=== PATIENT | female | born 1995 | race Caucasian/White ===

== ENCOUNTER 2017-01-02 00:16 | Emergency (ER) | payer OTHER ==
[2017-01-02] MEDS ORDERED: DEXAMETHASONE 10 MG/ML VIAL PO STA (01:11)
[2017-01-02] MEDS ORDERED: ACETAMINOPHEN 325 MG TABLET PO STA (01:11)
[2017-01-02] MEDS ORDERED: CEPHALEXIN 250 MG CAPSULE PO STA (01:11)
[2017-01-02] MEDS ORDERED: ACETAMINOPHEN 325 MG TABLET PO ONE (01:15)
[2017-01-02] MEDS ORDERED: DEXAMETHASONE 10 MG/ML VIAL ONE (01:15)
[2017-01-02] MEDS ORDERED: CEPHALEXIN 250 MG CAPSULE PO ONE (01:15)
[2017-01-02] MEDS ORDERED: CHERRY SYRUP 10 ML UDC PO ONE (01:15)
[2017-01-02] MEDS ORDERED: diphenhydrAMINE 25 MG CAPSULE PO STA (01:26)
[2017-01-02] MEDS ORDERED: diphenhydrAMINE 25 MG CAPSULE PO ONE (01:34)
== END 2017-01-02 01:41 | disposition home or self-care (01) ==
DX: J03.90 Acute tonsillitis, unspecified (principal)
CPT/HCPCS: 87070; 87430; 99283; A9270

== ENCOUNTER 2018-02-03 01:58 | Emergency (ER) | payer OTHER ==
--- NOTE | 2018-02-03 02:31 | ED Physician Documentation ---
PD HPI OVERDOSE - Stated complaint Stated Complaint: MEDICATION OVERDOSE - Chief complaint Chief Complaint: General - History obtained from History obtained from: Patient, Family - History of Present Illness Timing - onset: Today Subtance(s) ingested: Tylenol Contributing factors: Accidental Similar symptoms before: Has not had sx before Recently seen: Not recently seen - Additional information Additional information: Patient is a 22 year old female with no significant past medical history who is presenting to the emergency department for accidental tylenol overdose. patient states that she has not been feeling well for the last week with uri symptoms. Patient states that she has been taking tylenol, pseudophed and a cold and flu medication. Patient states that tonight she took five tylenol, which she thought were 50s, but were 500mg. Patient also took liquid cold medication that had tylenol in it. Patient states that she does not know the amount that she took but it is 650 mg per serving. Patient states that it was definitely accidental and is complaining of mild abdominal pain. 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 - Present Medications Home Medications: Ambulatory Orders Medication Instructions Recorded Confirmed Cephalexin [Keflex] 500 mg PO TID #15 capsule 01/02/17 Dexamethasone [Decadron] 4 mg PO DAILY #5 tablet 01/02/17 Ibuprofen [Motrin] 600 mg PO TID #20 tab 01/02/17 - Allergies Allergies/Adverse Reactions: Allergies Allergy/AdvReac Type Severity Reaction Status Date / Time No Known Drug Allergies Allergy Verified 02/03/18 02:13 - Social History Does the pt smoke?: No Smoking Status: Never smoker Does the pt drink ETOH?: No Does the pt have substance abuse?: No - Immunizations Immunizations are current?: Yes - POLST Patient has POLST: No Results - Vitals Vitals: Vital Signs - 24 hr 02/03/18 02/03/18 02:07 06:14 Temperature 36.5 C Heart Rate 67 64 Respiratory 18 16 Rate Blood Pressure 135/71 H 128/68 O2 Saturation 99 100 Oxygen O2 Source Room air - Labs Labs: Laboratory Tests 02/03/18 02/03/18 02/03/18 02:20 06:08 06:08 WBC 5.9 RBC 4.38 Hgb 12.6 Hct 38.9 MCV 88.8 MCH 28.7 MCHC 32.3 RDW 14.6 Plt Count 218 MPV 8.6 Neut # 3.1 Lymph # 2.1 [place] # 0.5 Eos # 0.2 Baso # 0.0 Absolute Nucleated RBC 0.00 Nucleated RBC % 0.1 Sodium 137 Potassium 4.0 Chloride 107 Carbon Dioxide 24 Anion Gap 6.0 BUN 11 Creatinine 0.7 Estimated GFR (MDRD) 106 Glucose 117 H Calcium 8.7 Total Bilirubin 0.4 AST 16 ALT 15 Alkaline Phosphatase 55 Total Protein 6.9 Albumin 3.8 Globulin 3.1 Albumin/Globulin Ratio 1.2 Lipase 21 L Acetaminophen 116 H* 38 H PD MEDICAL DECISION MAKING - ED course Complexity details: reviewed old records, reviewed results, re-evaluated patient , considered differential, d/w patient, d/w family ED course: Patient was seen and examined at bedside. labs were drawn. patient was found to have an acetaminophen level of 116. patient was observed for repeat acetaminophen level at 4 hours which was normal. Patient required no further work up and was stable for discharge with outpatient follow up. Departure - Departure Disposition: 01 Home, Self Care Clinical Impression: Abdominal pain Condition: Good Instructions: ED Abdominal Pain Unkn Cause Follow-Up: Raman Godinez ARNP [Primary Care Provider] - Within 3 Days Comments: Your diagnostics today were within normal limits. Your tylenol levels normalized. You should be careful and read all labels before ingesting. You should follow up with your doctor for further evaluation and care. You may return to the emergency department at any time for new, worsening or uncontrollable symptoms. Forms: Activity restrictions
[2018-02-03 06:15] VITALS: BP 128/68
[2018-02-03 06:15] LABS: BASOPHILS % (AUTO) 0.7 %; EOSINOPHILS # (AUTO) 0.2 10^3/uL (0.0-0.7); EOSINOPHILS % (AUTO) 3.7 %; HGB - HEMOGLOBIN 12.6 g/dL (12.0-16.0); LYMPHOCYTES # (AUTO) 2.1 10^3/uL (1.5-3.5); LYMPHOCYTES % (AUTO) 35.1 %; MEAN CORPUSCULAR HEMOGLOBIN 28.7 pg (27.0-31.0); MEAN CORPUSCULAR HGB CONC 32.3 g/dL (32.0-36.0); MEAN CORPUSCULAR VOLUME 88.8 fL (81.0-99.0); MEAN PLATELET VOLUME 8.6 fL (7.9-10.8); MONOCYTES # (AUTO) 0.5 10^3/uL (0.0-1.0); MONOCYTES % (AUTO) 7.9 %; NEUTROPHILS # (AUTO) 3.1 10^3/uL (1.5-6.6); NEUTROPHILS % (AUTO) 52.6 %; PLT - PLATELET COUNT 218 10^3/uL (130-450); RED BLOOD COUNT 4.38 10^6/uL (4.20-5.40); RED CELL DISTRIBUTION WIDTH 14.6 % (12.0-15.0); WHITE BLOOD COUNT 5.9 x10^3/uL (4.8-10.8)
[2018-02-03 06:28] LABS: ALBUMIN 3.8 g/dL (3.2-5.5); ALBUMIN/GLOBULIN RATIO 1.2 (1.0-2.2); BILIRUBIN,TOTAL 0.4 mg/dL (0.2-1.0); CALCIUM 8.7 mg/dL (8.5-10.3); CREATININE 0.7 mg/dL (0.4-1.0); TOTAL PROTEIN 6.9 g/dL (6.7-8.2)
== END 2018-02-03 06:45 | disposition home or self-care (01) ==
LOC: ED 01:58
DX: T39.1X1A Poisoning by 4-Aminophenol derivatives, accidental (unintentional), initial encounter (principal); R10.84 Generalized abdominal pain
CPT/HCPCS: 36415; 80053; 80307; 83690; 85025; 99283; 99284

== ENCOUNTER 2018-04-23 12:39 | Outpatient (CLI) | payer OTHER ==
[2018-04-23] MEDS ORDERED: IOTHALAMATE MEGLUMINE 50 ML VIAL ONE (13:14)
[2018-04-23] MEDS ORDERED: GADOPENTETATE DIMEGLUMINE 5 ML VIAL IVP ONE ×2 (13:20→14:16)
[2018-04-23] MEDS ORDERED: IOTHALAMATE MEGLUMINE 50 ML VIAL IVP ONE (14:16)
[2018-04-23] MEDS ORDERED: BUFFERED LIDOCAINE 10 ML SYRINGE IU ONE (14:16)
--- NOTE | 2018-04-23 15:32 | MRI Report ---
Procedure Date: 04/23/2018 Accession Number: [id number] / [id number] Procedure: MRI - Cervical Spine W/O CPT Code: FULL RESULT: EXAM: MRI CERVICAL SPINE WITHOUT CONTRAST EXAM DATE: 04/23/2018 01:33 PM. CLINICAL HISTORY: Shoulder pain. Tender with no history of trauma. COMPARISONS: None. TECHNIQUE: Multiplanar, multisequence T1-weighted and fluid-sensitive sequences of the cervical spine without contrast. Other: None. FINDINGS: No suspicious marrow replacement is present. 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 There is a dysplastic appearance to the cerebellar tonsils. Soft tissue fullness along the dorsal aspect of the upper cervical spinal cord just below the dysplastic tonsils is felt to reflect displaced cervicomedullary junction. No abnormal T2 signal is seen in the cervical spinal cord to suggest a syrinx. No focal posterior disk protrusions are present. There is no central canal or foraminal stenosis. A posterior bulge of the annulus is seen from C3 through C7. IMPRESSION: 1. No focal posterior disk protrusion is evident. 2. No central canal or foraminal stenosis. 3. A Chiari I malformation is present without a cervical spinal cord syrinx identified. [facility]
--- NOTE | 2018-04-23 17:01 | XRAY Report ---
Procedure Date: 04/23/2018 Accession Number: [id number] / [id number] Procedure: FL - Arthrogram Needle Placement CPT Code: FULL RESULT: EXAM: Arthrogram Needle Placement DATE: 04/23/2018 2:12 PM CLINICAL HISTORY: RT SHOULDER PAIN COMPARISON: None. TECHNIQUE: The risks, benefits, and alternatives of the procedure were discussed with the patient. All questions were answered. Written and verbal consent were obtained. The glenohumeral joint was marked under fluoroscopy and prepped and draped in a sterile manner. Local anesthesia was performed with 1% lidocaine. A 22-gauge needle was then inserted into the glenohumeral joint. 10 mL of a solution containing 25% 1% lidocaine, 25% iodinated contrast, and a 1:200 dilution of gadolinium contrast in sterile saline was then injected. The needle was removed without immediate complication. Other: None. Fluoroscopic exposure time: 1 minute 2 seconds Number of fluoroscopic images: 1. FINDINGS: Bones and joints: No fracture or subluxation. Injection: Fluoroscopic images demonstrate needle placement and contrast in the glenohumeral joint. No contrast extravasation outside of the glenohumeral joint. IMPRESSION: Successful fluoroscopically guided arthrographic injection of the shoulder. [facility]
--- NOTE | 2018-04-23 19:31 | MRI Report ---
Procedure Date: 04/23/2018 Accession Number: [id number] / [id number] Procedure: MRI - Arthrogram Shoulder RT CPT Code: FULL RESULT: EXAM: RIGHT SHOULDER MRI ARTHROGRAM WITH CONTRAST EXAM DATE: 04/23/2018 02:49 PM. CLINICAL HISTORY: Tenderness/difficulty with overhead motion. No history of trauma. COMPARISON: None. TECHNIQUE: Multiplanar, multisequence T1-weighted and fluid-sensitive sequences of the shoulder after an arthrographic injection of dilute gadolinium, dictated under a separate exam. Other: None. FINDINGS: Acromioclavicular Region: The acromion is type II. The acromioclavicular joint is unremarkable. The coracoacromial and coracoclavicular ligaments are intact. There is no contrast or fluid in the subacromial/subdeltoid bursa. Glenohumeral Region: No subluxation. No loose bodies. The articular cartilage is unremarkable. The glenohumeral ligaments and joint capsule are unremarkable. Bone Marrow: No fracture, marrow edema or bone lesions. Labrum: The labrum is unremarkable. Biceps Tendon: The long head of the biceps tendon and biceps zoë are intact. Musculature/Rotator Cuff: The subscapularis, supraspinatus, infraspinatus, and teres minor tendons are intact. No edema or fatty atrophy. Other: None IMPRESSION: No MRI abnormalities in the shoulder. [facility] MUSCULOSKELETAL RADIOLOGY SECTION
== END 2018-04-23 12:40 | disposition home or self-care (01) ==
LOC: DI 12:39
PROVIDERS: ATTEND Registered Nurse Diabetes Educator
DX: M25.511 Pain in right shoulder (principal); G93.5 Compression of brain
CPT/HCPCS: 23350; 72141; 73222; 77002; Q9961

== ENCOUNTER 2018-05-20 23:15 | Outpatient (CLI) | payer OTHER | END 2018-05-20 23:16 | disposition critical access hospital (66) | LOC: EMS 23:15 | PROVIDERS: ATTEND Surgery | DX: M54.9 Dorsalgia, unspecified (principal) | CPT/HCPCS: A0425; A0429 ==

== ENCOUNTER 2018-05-20 23:32 | Emergency (ER) | payer OTHER ==
--- NOTE | 2018-05-21 04:41 | ED Physician Documentation ---
PD HPI BACK PAIN - Stated complaint Stated Complaint: SHOULDER/BACK SPASM - Chief complaint Chief Complaint: Back Pain - History obtained from History obtained from: Patient - History of Present Illness Timing - onset: Today Timing - duration: Hours Timing - details: Abrupt onset, Intermittant, Waxing and waning Location: Upper, Right, Left Associated symptoms: No: Fever, Weakness, Numbness Improves with: Rest Worsened by: Movement Similar symptoms before: Has not had sx before Recently seen: Not recently seen - Additional information Additional information: c/o sudden onset low neck/upper back pain, midline radiating to bilateral paracervical and parathoracic. denies injury. 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 - Present Medications Home Medications: Ambulatory Orders Medication Instructions Recorded Confirmed Cephalexin [Keflex] 500 mg PO TID #15 capsule 01/02/17 Dexamethasone [Decadron] 4 mg PO DAILY #5 tablet 01/02/17 Ibuprofen [Motrin] 600 mg PO TID #20 tab 01/02/17 Cyclobenzaprine [Flexeril] 10 mg PO TID PRN #20 tablet 05/21/18 HYDROcod/ACETAM 5/325 [[place] 5/325] 1 - 2 ea PO Q6H PRN #15 tablet 05/21/18 - Allergies Allergies/Adverse Reactions: Allergies Allergy/AdvReac Type Severity Reaction Status Date / Time No Known Drug Allergies Allergy Verified 05/20/18 23:39 - Social History Does the pt smoke?: No Smoking Status: Never smoker Does the pt drink ETOH?: No Does the pt have substance abuse?: No - Immunizations Immunizations are current?: Yes - POLST Patient has POLST: No PD ED PE NORMAL - Vitals Vital signs reviewed: Yes - General General: Alert and oriented X 3, No acute distress (NAD at rest, appears uncomfortable with movement involving neck/upper back), Well developed/nourished - Neck Neck: Supple, no meningeal sign, No bony TTP - Cardiac Cardiac: RRR, No murmur - Respiratory Respiratory: No respiratory distress, Clear bilaterally - Back Back: No spinal TTP - Derm Derm: Normal color, Warm and dry, No rash - Extremities Extremities: Normal ROM s pain - Neuro Neuro: Alert and oriented X 3, assistant principal 2-12 intact, No motor deficit, No sensory deficit, Normal speech Results - Vitals Vitals: Oxygen O2 Source Room air PD MEDICAL DECISION MAKING - ED course Complexity details: reviewed old records, considered differential, d/w patient ED course: MRI c-spine 04/23/18 reveals Chiari I malformation. patient had that study for unrelated problem (shoulder pain). pain is distinctly related to movement. there is no tenderness on exam, no neurologic/pulmonary/cardiac c/o nor findings. emergent testing not indicated at this time. given pain medication and muscle relaxant in ED and rx. - Sepsis Event Vital Signs: Oxygen O2 Source Room air Departure - Departure Disposition: 01 Home, Self Care Clinical Impression: Neck pain Back pain Qualifiers: Back pain location: thoracic back pain Chronicity: acute Back pain laterality: midline Qualified Code(s): M54.6 - Pain in thoracic spine Condition: Good Instructions: ED Neck Pain No Trauma, ED Neck Back Pain General Prescriptions: Cyclobenzaprine [Flexeril] 10 mg PO TID PRN #20 tablet PRN Reason: Spasms HYDROcod/ACETAM 5/325 [[place] 5/325] 1 - 2 ea PO Q6H PRN #15 tablet PRN Reason: Pain Forms: Activity restrictions Discharge Date/Time: 05/21/18 05:16
[2018-05-21] MEDS ORDERED: CYCLOBENZAPRINE 10 MG TABLET PO STA (05:00)
[2018-05-21] MEDS ORDERED: HYDROcod/ACETAM 5/325 MG TABLET PO STA (05:00)
[2018-05-21 05:14] VITALS: BP 129/83
== END 2018-05-21 05:16 | disposition home or self-care (01) ==
LOC: EDUNIT# → ED 23:32
DX: M54.2 Cervicalgia (principal); M54.6 Pain in thoracic spine
CPT/HCPCS: 99283; A9270

== ENCOUNTER 2019-01-21 14:17 | Outpatient (CLI) | payer OTHER ==
[2019-01-21 14:35] LABS: BASOPHILS % (AUTO) 0.5 %; EOSINOPHILS # (AUTO) 0.1 10^3/uL (0.0-0.7); EOSINOPHILS % (AUTO) 0.5 %; HGB - HEMOGLOBIN 12.4 g/dL (12.0-16.0); LYMPHOCYTES # (AUTO) 1.9 10^3/uL (1.5-3.5); LYMPHOCYTES % (AUTO) 18.5 %; MEAN CORPUSCULAR HEMOGLOBIN 27.3 pg (27.0-31.0); MEAN CORPUSCULAR HGB CONC 32.4 g/dL (32.0-36.0); MEAN CORPUSCULAR VOLUME 84.2 fL (81.0-99.0); MEAN PLATELET VOLUME 8.2 fL (7.9-10.8); MONOCYTES # (AUTO) 0.8 10^3/uL (0.0-1.0); MONOCYTES % (AUTO) 7.5 %; NEUTROPHILS # (AUTO) 7.7 10^3/uL (1.5-6.6); PLT - PLATELET COUNT 320 10^3/uL (130-450); RED BLOOD COUNT 4.54 10^6/uL (4.20-5.40); RED CELL DISTRIBUTION WIDTH 17.1 % (12.0-15.0); WHITE BLOOD COUNT 10.5 x10^3/uL (4.8-10.8)
== END 2019-01-21 14:18 | disposition home or self-care (01) ==
LOC: LAB 14:17
PROVIDERS: ATTEND Physician Assistant
DX: Z98.890 Other specified postprocedural states (principal); G89.18 Other acute postprocedural pain; R11.0 Nausea
CPT/HCPCS: 36415; 81599; 84145; 85025; 85651; 86140

== ENCOUNTER 2019-03-01 20:29 | Outpatient (CLI) | payer OTHER | END 2019-03-01 20:30 | disposition critical access hospital (66) | LOC: EMS 20:29 | PROVIDERS: ATTEND Surgery | DX: S89.92XA Unspecified injury of left lower leg, initial encounter (principal); X58.XXXA Exposure to other specified factors, initial encounter; Y93.75 Activity, martial arts; Y92.39 Other specified sports and athletic area as the place of occurrence of the external cause | CPT/HCPCS: A0425; A0429 ==

== ENCOUNTER 2019-03-01 20:50 | Emergency (ER) | payer OTHER ==
[2019-03-01 21:01] VITALS: BP 142/81
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
--- NOTE | 2019-03-01 21:34 | XRAY Report ---
Reason: knee dislocation Procedure Date: 03/01/2019 Accession Number: [id number] / [id number] Procedure: XR - Knee 2 View LT CPT Code: FULL RESULT: EXAM: LEFT KNEE RADIOGRAPHY EXAM DATE: 03/01/2019 09:16 PM. CLINICAL HISTORY: Knee dislocation. COMPARISON: None. TECHNIQUE: 2 views. FINDINGS: Bones: No fracture or focal bony lesion. Joints: No evidence of dislocation. Soft Tissues: No unexpected soft tissue findings. IMPRESSION: No evidence of fracture or dislocation. [facility]
== END 2019-03-01 21:42 | disposition home or self-care (01) ==
LOC: EDUNIT# → ED 20:50
DX: S83.005A Unspecified dislocation of left patella, initial encounter (principal); X50.1XXA Overexertion from prolonged static or awkward postures, initial encounter; Y93.59 Activity, other involving other sports and athletics played individually
CPT/HCPCS: 99282; 99283